=== PATIENT | female | born 1985 | race Caucasian/White ===

== ENCOUNTER 2016-07-31 16:11 | Emergency (ER) | payer OTHER ==
[2016-07-31 20:40] LABS: URINE BILIRUBIN NEGATIVE (NEGATIVE); URINE BLOOD NEGATIVE (NEGATIVE); URINE GLUCOSE (UA) NORMAL (NORMAL); URINE KETONE NEGATIVE (NEGATIVE); URINE LEUKOCYTE ESTERASE 1+ (NEGATIVE); URINE NITRATE NEGATIVE (NEGATIVE); URINE PROTEIN NEGATIVE (NEGATIVE)
[2016-07-31 20:41] LABS: BASO % 0.3 % (0.1-1.2); EOS # 0.4 10_X3_uL (0.0-0.4); GRAN # 5.4 10_X3_uL (1.6-6.1); GRAN % 69.2 % (34.0-71.1); HEMATOCRIT 24.3 % (34-45); LYMPH # 1.5 10_X3_uL (1.2-3.7); LYMPH % 18.9 % (19.3-51.7); MEAN CORPUSCULAR HEMOGLOBIN 20.3 pg (27.0-33.0); MEAN CORPUSCULAR HGB CONC 28.8 g/dL (32.0-36.0); MEAN CORPUSCULAR VOLUME 70.6 fL (79-95); MEAN PLATELET VOLUME 11.7 fl (7.5-11.5); MONO # 0.5 10_X3_uL (0.2-0.9); MONO % 6.6 % (4.7-12.5); PLATELET COUNT 254 x10_3/uL (182-369); RED BLOOD COUNT 3.44 x10_6/uL (3.9-5.2); RED CELL DISTRIBUTION WIDTH 18.7 % (11.7-14.4); WHITE BLOOD COUNT 7.8 x10_3/uL (4.0-10.0)
[2016-07-31 20:49] LABS: URINE BACTERIA TRACE (NONE SEEN); URINE SQUAMOUS EPITHELIAL CELL 0-10 /[HPF] (NONE SEEN); URINE WBC 0-5 /[HPF] (0-5)
[2016-07-31 20:53] LABS: ALBUMIN 3.5 gm/dL (3.4-5.0); ALKALINE PHOSPHATASE 77 U/L (50-136); ALT/SGPT 11 U/L (3.5-33.9); AST/SGOT 14 U/L (7.04-26.96); BILIRUBIN,TOTAL 0.32 mg/dL (0.0-1.0); BLOOD UREA NITROGEN 6 mg/dL (7-18); CALCIUM 8.4 mg/dL (8.7-10.7); CARBON DIOXIDE 21 mmol/L (21-32); CREATININE 0.6 mg/dL (0.6-1.3); GLUCOSE,RANDOM 82 mg/dL (70-99); LIPASE 33 U/L (6.75-60.75); POTASSIUM 3.9 mmol/L (3.5-5.1); SODIUM 140 mmol/L (136-145); TOTAL PROTEIN 6.1 gm/dL (6.4-8.2)
[2016-07-31 21:51] LABS: PARTIAL THROMBOPLASTIN TIME 23.4 SECONDS (21.8-28.4); PROTHROMBIN TIME (PATIENT) 10.4 SECONDS (9.6-10.8)
[2016-07-31 21:58] LABS: SERUM IRON 9 ug/dl (50-170); UIBC 365 ug/dL (135-370)
== END 2016-08-01 00:15 | disposition short-term general hospital (02) ==
LOC: ER 16:11
PROVIDERS: Internal Medicine
DX: D50.9 Iron deficiency anemia, unspecified (principal); R76.0 Raised antibody titer; R19.5 Other fecal abnormalities; R10.9 Unspecified abdominal pain; R11.2 Nausea with vomiting, unspecified; D12.6 Benign neoplasm of colon, unspecified; Z90.49 Acquired absence of other specified parts of digestive tract; Z85.038 Personal history of other malignant neoplasm of large intestine; Z93.4 Other artificial openings of gastrointestinal tract status; F17.210 Nicotine dependence, cigarettes, uncomplicated; Z79.899 Other long term (current) drug therapy; Z88.8 Allergy status to other drugs, medicaments and biological substances; Z88.5 Allergy status to narcotic agent
CPT/HCPCS: 36415; 80053; 80307; 81001; 81025; 83540; 83550; 83690; 85025; 85610; 85730; 86920; 99070; 99284; 99285-25; G0328-QW; Q0169